=== PATIENT | female | born 1955 | race Caucasian/White ===

== ENCOUNTER 2020-02-26 13:29 | Outpatient (CLI) | payer BC, SELFPAY ==
--- NOTE | ~2020-02-26 | XR_ITS ---
EXAMINATION: XR shoulder LT min 2V DATE: 02/26/2020 13:54 INDICATION: Left shoulder pain. TECHNIQUE: 4 views of left shoulder were obtained. COMPARISON: None. FINDINGS: Bone alignment is normal. No fracture. Glenohumeral joint is normal. There is mild acromioc lavicular joint osteoarthritis. IMPRESSION: 1. Mild left acromioclavicular joint osteoarthritis. Reviewed, dictated and finalized at location B.
== END 2020-02-26 13:30 | disposition home or self-care (01) ==
PROVIDERS: PCP Family Medicine; Visit Provider Family Medicine
DX: M19.012 Primary osteoarthritis, left shoulder (principal)
CPT/HCPCS: 73030

== ENCOUNTER 2020-04-09 14:59 | Emergency (ER) | payer BC, SELFPAY ==
--- NOTE | ~2020-04-09 | CT_ITS ---
EXAMINATION: CT BRAIN W/O DATE: 04/09/2020 16:10 INDICATION: Syncope TECHNIQUE: Computed tomography (CT) of the head was performed without intravenous contrast. The dose- length product was 605.33 mGy-cm. The mA was adjusted according to patient size. Iterative reconstruc tion technique was employed. COMPARISON: No prior studies for comparison. FINDINGS: Normal brain parenchymal volume for age. Normal colvin-white differentiation. No acute intrac ranial hemorrhage, infarction, mass or mass effect. No ventriculomegaly or midline shift. Midline sagittal images demonstrate a normal corpus callosum, c raniovertebral junction and sella turcica. Basilar cisterns are patent. Paranasal sinuses and mastoids are pneumatized. No depressed skull fractures. IMPRESSION: 1. No acute intracranial abnormality. Reviewed, dictated and finalized at location A.
[2020-04-09 15:07] VITALS: BP 154/66; PULSE 70; RESP 17; TEMP 36.1; O2SAT 100
--- NOTE | 2020-04-09 15:11 | ED.GENADULT ---
HPI - General Adult General Chief complaint: Syncope Stated complaint: SYNOPAL EPISODE Source: patient History of Present Illness HPI narrative: Patient is a 64 y/o female complaining of passing out while she was on the commode. She state that she was having an BM, felt dizzy and lowered herself to the floor. She then passed out briefly. She denies any pain or injury. states that their grand kids found her unresponsive and called him. When he got home a few minutes later, she was on the floor and was awake and talking a little bit. Currently, she feels weak all over. Related Data Home Medications Medication Instructions Recorded Confirmed hydrochlorothiazide 12.5 mg tablet 12.5 mg PO DAILY 02/26/20 02/26/20 pantoprazole 40 mg tablet,delayed 40 mg PO QAM 02/26/20 02/26/20 release Allergies Allergy/AdvReac Type Severity Reaction Status Date / Time codeine Allergy Unknown Unknown Verified 04/09/20 15:23 Penicillins Allergy Unknown Unknown Verified 04/09/20 15:23 Review of Systems Constitutional: Constitutional: Denies chills, Denies fever(s), Denies headache(s) and Reports weakness Eyes: Eyes: Denies blurry vision ENT: Denies headache(s) and Denies neck pain Cardiovascular: Cardiovascular: Denies chest pain and Denies dyspnea Respiratory: Respiratory: Denies cough and Denies dyspnea Gastrointestinal: Gastrointestinal: Denies abdominal pain, Denies diarrhea, Denies nausea and Denies vomiting Genitourinary: Genitourinary: Denies hematuria and Denies dysuria Musculoskeletal: Musculoskeletal: Denies back pain and Denies neck pain Neurologic: Reports syncope, Denies headache(s) and Reports weakness PMFSH Past Medical History Medical History Hypertension Hypothyroid Surgical History Surgical History History of cholecystectomy Family History Family History Father Diabetes mellitus Family history of cardiovascular disease Mother Diabetes mellitus Cerebrovascular accident Family history of cardiac disorder Sibling Familial primary pulmonary hypertension Family history of malignant neoplasm Family history of malignant neoplasm of brain Other Family history of kidney disease Hypertension Social History Social History Smoking status: Former smoker Second hand tobacco smoke exposure: No Smoking end date: 07/19/79 Alcohol intake: never Substance use: never Substance use type: does not use Gender identity (if verbalized by the patient): Female Spiritual care concerns: Yes (Patient is ok with speaking with someone.) Agree to blood products: Yes Exam Const: General: no acute distress and well developed Orientation/consciousness: oriented to person, oriented to place, oriented to time and patient oriented x3 HENMT: Head: normocephalic Ears: external ears normal General nose exam: Normal external nose present Eyes: General: appearance normal, both eyes and all related structures Conjunctivae: conjunctivae normal Neck: Neck: normal visual inspection and full ROM Chest: Chest palpation & inspection: normal inspection of the chest and no tenderness Resp: Effort & Inspection: normal respiratory effort Auscultation: clear to auscultation bilaterally Cardio: Rate: regular rate Rhythm: regular rhythm GI: GI Palp: No abdominal tenderness and Yes Soft to palpation Skin: General skin exam: normal color and turgor normal Neuro: General: oriented to person, oriented to place, oriented to time and patient oriented x3 Cranial nerves: Yes CN's II-XII intact bilaterally Cognition (Neuro): normal cognition Speech: normal speech Motor exam (neuro): 5/5 motor strength present throughout Sensory Exam: normal sensation Coordination: [id number] test normal and heel-to
[2020-04-09 15:12] VITALS: BP 145/59; PULSE 70
[2020-04-09 15:13] VITALS: BP 144/66; PULSE 72
[2020-04-09 15:16] VITALS: BP 138/67; PULSE 72; PULSE 98; O2SAT 100
--- NOTE | 2020-04-09 15:20 | ECG_ITS ---
Measurements Intervals [place] Rate: 78 P: 67 MN: 215 QRS: -30 QRSD: 156 T: 107 QT: 405 QTc: 463 Interpretive Statements SINUS RHYTHM WITH FIRST DEGREE AV BLOCK VENTRICULAR PREMATURE COMPLEXES POSSIBLE LEFT ATRIAL ENLARGEMENT LEFT BUNDLE BRANCH BLOCK BASELINE ARTIFACT- I, II, III, AVR, AVL, AVF ABNORMAL ECG Electronically Signed On 04-09-2020 15:22:16 CDT by David Forrest D.O.
[2020-04-09 16:38] LABS: Basophils Percent Auto 0.5 % (0.2-1.2); Eosinophils Percent Auto 0.4 % (0-4.4); Hemoglobin 15.3 g/dL (12.0-15.0); Immature Granulocyte Absolute 0.03 K/mm3 (0.00-0.031); Immature Granulocyte Percent A 0.4 % (0-0.5); Lymphocytes Absolute Auto 1.48 K/mm3 (0.9-3.2); Lymphocytes Percent Auto 17.7 % (18.3-44.2); Mean Corpuscular HGB Conc 33.3 g/dl (32-36); Mean Corpuscular Hemoglobin 31.7 pg (26-34); Mean Corpuscular Volume 95.2 fl (80-100); Mean Platelet Volume 12.1 fl (7.4-10.4); Monocytes Absolute Auto 0.6 K/mm3 (0.1-0.6); Monocytes Percent Auto 7.2 % (2.6-8.5); Neutrophils Absolute Auto 6.2 K/mm3 (1.3-6.7); Neutrophils Percent Auto 73.8 % (45.5-73.1); Platelet Count Result 226 k/mm3 (150-375); Red Blood Count 4.83 M/mm3 (4.2-5.4); Red Cell Distribution Width 12.2 % (11.5-14.5); White Blood Count 8.4 K/mm3 (4.5-10.0)
[2020-04-09 16:50] LABS: Anion Gap 6 mmol/L (8-16); Blood Urea Nitrogen 20 mg/dL (7-17); Calcium 9.4 mg/dL (8.4-10.2); Carbon Dioxide 30 mmol/L (22-30); Chloride 99 mmol/L (98-107); Estimated CRCL calculation 62 ml/min; Estimated Glomerular Filt Rate > 60; Glucose 116 mg/dL (65-105); Potassium 3.9 mmol/L (3.4-5.0); Sodium 135 mmol/L (137-145)
[2020-04-09] MEDS: SODIUM CHLORIDE 0.9% IV 1,000 ML 999 ML IV CONT (16:53)
[2020-04-09 16:55] VITALS: BP 147/57; PULSE 78; RESP 12; O2SAT 100
[2020-04-09 16:58] LABS: Add Urine Microscopic? NO; Appearance Urine Clear (Clear); Bilirubin Urine Negative (Negative); Blood Urine Negative (Negative); Color Urine Yellow (Yellow); Glucose Urine UA Negative (Negative); Ketones Urine Negative (Negative); Leukocyte Esterase Ur Negative LEU/UL (Negative); Nitrate Urine Negative (Negative); Protein Urine Negative (Negative); Specific Grav Ur 1.015 (1.001-1.035); Urobilinogen Urine Negative mg/dL (<2.0)
[2020-04-09 16:59] LABS: NT Pro B Type Natriuretic Pept 79 PG/ML (5-100)
[2020-04-09 17:46] VITALS: BP 146/69; PULSE 76; RESP 16; O2SAT 100
== END 2020-04-09 17:50 | disposition home or self-care (01) ==
PROVIDERS: Emergency Provider Emergency Medicine; PCP Family Medicine
DX: R55 Syncope and collapse (principal); I44.7 Left bundle-branch block, unspecified; I10 Essential (primary) hypertension; E03.9 Hypothyroidism, unspecified
CPT/HCPCS: 36415; 70450; 80048; 81003; 83880; 85025; 93005; 96360; 99284; J7030

== ENCOUNTER 2020-09-05 10:09 | Outpatient (CLI) | payer BC, SELFPAY ==
--- NOTE | ~2020-09-05 | XR_ITS ---
EXAMINATION: XR knee LT min 4V DATE: 09/05/2020 10:29 INDICATION: Left knee pain TECHNIQUE: Four views of the left knee were obtained. COMPARISON: 08/14/2014 FINDINGS: Alignment is normal. No fracture or osteochondral lesion. There is mild tricompartmental os teoarthritis characterized by tiny marginal osteophytes. No joint effusion/synovitis. Soft tissues a re unremarkable. IMPRESSION: 1. Mild osteoarthritis without acute osseous abnormality. Reviewed, dictated and finalized at location A. IC[employer] SUPPORT LEAD
== END 2020-09-05 10:10 | disposition home or self-care (01) ==
LOC: ANHIMG 10:12
PROVIDERS: PCP Physician Assistant; Visit Provider Physician Assistant
DX: M17.12 Unilateral primary osteoarthritis, left knee (principal)
CPT/HCPCS: 73564

== ENCOUNTER 2021-09-22 09:40 | Emergency (ER) | payer BC, SELFPAY ==
--- NOTE | ~2021-09-22 | XR_ITS ---
EXAMINATION: XR chest 2V DATE: 09/22/2021 10:18 INDICATION: Cough. TECHNIQUE: Frontal and lateral views of the chest were obtained. COMPARISON: Chest 2 views 02/18/2017 FINDINGS: The chest demonstrates clear lungs without pneumonia, pleural effusion, or pneumothorax. Th e heart size is normal. Surgical clips in the right upper quadrant are likely from cholecystectomy. IMPRESSION: 1. No acute cardiopulmonary disease. Reviewed, dictated and finalized at location A. 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
--- NOTE | ~2021-09-22 | XR_ITS ---
EXAMINATION: XR thoracic spine 3V DATE: 09/22/2021 10:18 INDICATION: Back pain. TECHNIQUE: 3 views of thoracic spine were obtained. COMPARISON: Chest 2 views 02/18/2017 FINDINGS: There is 9 degrees levocurvature of upper thoracic spine. Vertebral body heights are normal . There is moderately decreased disc height at T4-T5 and T6-T7 and mildly decreased disc height at mu ltiple other levels. There are endplate osteophytes at most levels. Surgical clips in the right upper quadrant are likely from cholecystectomy. IMPRESSION: 1. Moderate thoracic spondylosis. Reviewed, dictated and finalized at location A. 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
[2021-09-22 09:49] VITALS: BP 154/86; PULSE 91; RESP 16; TEMP 36.4; O2SAT 99
--- NOTE | 2021-09-22 10:04 | ED.BACK ---
HPI - Back Pain/Injury General Chief Complaint: Back Pain/Injury Stated Complaint: right flank pain Time Seen by Provider: 09/22/21 09:44 History of Present Illness HPI Narrative: 65-year-old presents to the emergency room gradual onset of right thoracic back pain. Patient states pain is worse when rotating her body to the right or when somebody touches her back. Denies injury or trauma. States pain does not get worse with respiration. Has not tried any [id number] medications for pain relief. Related Data Allergies Allergy/AdvReac Type Severity Reaction Status Date / Time codeine Allergy Unknown Unknown Verified 07/07/21 12:13 Penicillins Allergy Unknown Unknown Verified 07/07/21 12:13 Review of Systems Review of Systems: CONSTITUTIONAL: Denies fever, chills, or sweats. EYES: Denies visual changes, redness, or discharge. ENT: Denies rhinorrhea, congestion, sore throat, or otalgia. CARDIOVASCULAR: Denies chest pain, palpitations, or edema. RESPIRATORY: Denies cough or dyspnea. GASTROINTESTINAL: Denies abdominal pain, nausea, vomiting, or diarrhea. GENITOURINARY: Denies dysuria or hematuria. SKIN: Denies rash or itching. MUSCULOSKELETAL: Reports back pain. NEUROLOGIC: Denies headache, numbness, dizziness, or weakness. PSYCHIATRIC: Denies anxiety or depression. [facility] Past Medical History Medical History Adhesive capsulitis of left shoulder BMI 38.0-38.9,adult Encounter for wellness examination GERD (gastroesophageal reflux disease) Hypertension Hypothyroid Left shoulder pain Primary hypertension Surgical History Surgical History History of delivery (~1979) History of cholecystectomy Family History Family History Father Diabetes mellitus Family history of cardiovascular disease Mother Diabetes mellitus Cerebrovascular accident Family history of cardiac disorder Sibling Familial primary pulmonary hypertension Family history of malignant neoplasm Family history of malignant neoplasm of brain Other Family history of kidney disease Hypertension Social History Social History Second hand tobacco smoke exposure: No Smoking end date: 07/19/79 Alcohol intake: never Substance use: never Substance use type: does not use Gender identity (if verbalized by the patient): Female Sexual Orientation (if Verbalized by the Patient): Straight or Heterosexual Spiritual care concerns: Yes (Patient is ok with speaking with someone.) Agree to blood products: Yes Exam Narrative: GENERAL: Well-appearing, well-nourished, and in no acute distress. HEAD: Normocephalic, atraumatic. EYES: PERRLA and EOMI. ENT: Nares clear, no rhinorrhea or epistaxis. Mucous membranes moist. NECK: Supple. No adenopathy or masses. No carotid bruits or JVD BACK: Tenderness to the right latissimus dorsi muscles, pain with rotation to the right and lateral bend to the right; no midline tenderness. No step-offs. CHEST: Clear to auscultation. No respiratory distress. No wheezes rales or rhonchi HEART: Regular rate and rhythm. No murmur heard. Normal peripheral pulses. ABDOMEN: Soft, nontender, nondistended, normal active bowel sounds. No CVA tenderness EXTREMITIES: Normal range of motion. No edema. SKIN: Warm, dry, no rash. NEURO: No focal deficits. Alert and oriented x3. PSYCH: Normal mood and affect. Course Vital Signs Vital signs: Vital Signs Temperature 36.4 C L 09/22/21 09:49 Pulse Rate 91 09/22/21 09:49 Respiratory Rate 16 09/22/21 09:49 Blood Pressure 154/86 H 09/22/21 09:49 Pulse Oximetry 99 09/22/21 09:49 Temperature 36.4 C L 09/22/21 09:49 Pulse Rate 91 09/22/21 09:49 Respiratory Rate 16 09/22/21 09:49 Blood Pressure 154/86 H 09/22/21 09:49 Pulse Oxim
[2021-09-22] MEDS: KETOROLAC (*BKC) 60 MG/2 ML VIAL IM (10:21)
[2021-09-22 11:09] VITALS: BP 155/74; PULSE 71; RESP 16; O2SAT 99
== END 2021-09-22 11:17 | disposition home or self-care (01) ==
PROVIDERS: Emergency Provider Nurse Practitioner Family; PCP Family Medicine
DX: S29.012A Strain of muscle and tendon of back wall of thorax, initial encounter (principal); I10 Essential (primary) hypertension; E03.9 Hypothyroidism, unspecified; K21.9 Gastro-esophageal reflux disease without esophagitis; Z87.891 Personal history of nicotine dependence; M47.814 Spondylosis without myelopathy or radiculopathy, thoracic region; X58.XXXA Exposure to other specified factors, initial encounter
CPT/HCPCS: 71046; 72072; 96372; 99284; J1885

== ENCOUNTER 2023-09-29 09:09 | Outpatient (CLI) | payer OTHER, SELFPAY ==
[2023-09-29 11:32] LABS: Basophils Percent Auto 0.7 % (0.2-1.2); Eosinophils Absolute Auto 0.1 K/mm3 (0-0.3); Eosinophils Percent Auto 1.7 % (0-4.4); Hematocrit 44.5 % (37.0-47.0); Hemoglobin 14.3 g/dL (12.0-15.0); Immature Granulocyte Absolute 0.01 K/mm3 (0.00-0.031); Immature Granulocyte Percent A 0.2 % (0-0.5); Lymphocytes Absolute Auto 1.74 K/mm3 (0.9-3.2); Lymphocytes Percent Auto 42.2 % (18.3-44.2); Mean Corpuscular HGB Conc 32.1 g/dl (32-36); Mean Corpuscular Hemoglobin 31.2 pg (26-34); Mean Corpuscular Volume 96.9 fl (80-100); Mean Platelet Volume 12.5 fl (7.4-10.4); Monocytes Absolute Auto 0.3 K/mm3 (0.1-0.6); Monocytes Percent Auto 7.3 % (2.6-8.5); Neutrophils Percent Auto 47.9 % (45.5-73.1); Platelet Count Result 225 k/mm3 (150-375); Red Blood Count 4.59 M/mm3 (4.2-5.4); Red Cell Distribution Width 12.9 % (11.5-14.5); White Blood Count 4.1 K/mm3 (4.5-10.0)
[2023-09-29 11:47] LABS: Anion Gap 6 mmol/L (8-16); Blood Urea Nitrogen 16 mg/dL (7-17); Carbon Dioxide 28 mmol/L (22-30); Chloride 106 mmol/L (98-107); Potassium 4.2 mmol/L (3.4-5.0); Sodium 140 mmol/L (137-145)
[2023-09-29 11:48] LABS: Alanine Aminotransferase 20 U/L (6-35); Albumin Level 3.9 g/dL (3.5-5.1); Alkaline Phosphatase 96 U/L (38-126); Aspartate Amino Transferase 45 U/L (14-36); Bilirubin,Total 0.7 mg/dL (0.2-1.3); Cholesterol 175 mg/dL (0-200); Estimated Glomerular Filt Rate > 60; Glucose 105 mg/dL (65-110); HDL Direct 40 mg/dL; Triglycerides 119 mg/dL (<150)
[2023-09-29 11:58] LABS: LDL Cholesterol Direct 108 mg/dL
[2023-09-29 12:26] LABS: Free T4 Free Thyroxine 1.12 ng/mL (0.78-2.19)
[2023-10-04 18:10] LABS: Anti Nuclear Antibody Pattern Nuclear, Speckled; Anti Nuclear Antibody Titer 1:40 (Negative)
== END 2023-09-29 09:10 | disposition home or self-care (01) ==
LOC: ANHGOSHLAB 09:10
PROVIDERS: PCP Family Medicine; Visit Provider Family Medicine
DX: R53.83 Other fatigue (principal); E03.9 Hypothyroidism, unspecified; Z13.228 Encounter for screening for other metabolic disorders; Z13.220 Encounter for screening for lipoid disorders; M25.50 Pain in unspecified joint
CPT/HCPCS: 36415; 80053; 80061; 84439; 84443; 85025; 86038; 86039

== ENCOUNTER 2023-10-13 08:59 | Outpatient (CLI) | payer OTHER, SELFPAY ==
[2023-10-13 19:03] LABS: Rheumatoid Factor < 12.0 IU/ML (<12)
[2023-10-16 21:13] LABS: Anti Cyclic Citrullinated Pept <16 Units (<20)
[2023-10-17 08:09] LABS: SM Antibody <1.0; SM/RNP Antibody <1.0; Scleroderma 70 Antibody <1.0
[2023-10-17 18:50] LABS: HLA B27 Negative (Negative)
[2023-10-19 13:05] LABS: Histone Antibody <1.0 U (<1.0)
== END 2023-10-13 09:00 | disposition home or self-care (01) ==
LOC: ANHGOSHLAB 09:01
PROVIDERS: PCP Family Medicine; Visit Provider Family Medicine
DX: R76.8 Other specified abnormal immunological findings in serum (principal); M25.50 Pain in unspecified joint; H20.9 Unspecified iridocyclitis
CPT/HCPCS: 36415; 86200; 86225; 86235; 86364; 86430; 86812

== ENCOUNTER 2023-11-01 11:44 | Outpatient (CLI) | payer OTHER, SELFPAY ==
[2023-11-01 14:12] LABS: Basophils Absolute Auto 0.1 K/mm3 (0.0-0.1); Basophils Percent Auto 1.3 % (0.2-1.2); Eosinophils Absolute Auto 0.1 K/mm3 (0-0.3); Eosinophils Percent Auto 2.2 % (0-4.4); Hematocrit 44.5 % (37.0-47.0); Hemoglobin 14.4 g/dL (12.0-15.0); Immature Granulocyte Absolute 0.01 K/mm3 (0.00-0.031); Immature Granulocyte Percent A 0.2 % (0-0.5); Lymphocytes Absolute Auto 1.69 K/mm3 (0.9-3.2); Lymphocytes Percent Auto 36.7 % (18.3-44.2); Mean Corpuscular HGB Conc 32.4 g/dl (32-36); Mean Corpuscular Hemoglobin 31.6 pg (26-34); Mean Corpuscular Volume 97.6 fl (80-100); Mean Platelet Volume 12.7 fl (7.4-10.4); Monocytes Absolute Auto 0.4 K/mm3 (0.1-0.6); Monocytes Percent Auto 8.2 % (2.6-8.5); Neutrophils Absolute Auto 2.4 K/mm3 (1.3-6.7); Neutrophils Percent Auto 51.4 % (45.5-73.1); Platelet Count Result 224 k/mm3 (150-375); Red Blood Count 4.56 M/mm3 (4.2-5.4); Red Cell Distribution Width 13.2 % (11.5-14.5); White Blood Count 4.6 K/mm3 (4.5-10.0)
[2023-11-01 15:16] LABS: Erythrocyte Sedimentation Rate 13 mm/hr (0-20)
[2023-11-01 15:24] LABS: Rheumatoid Factor < 12.0 IU/ML (<12)
[2023-11-01 15:37] LABS: Alanine Aminotransferase 19 U/L (6-35); Albumin Level 4.5 g/dL (3.5-5.1); Alkaline Phosphatase 100 U/L (38-126); Anion Gap 8 mmol/L (4-12); Aspartate Amino Transferase 43 U/L (14-36); Bilirubin,Total 0.7 mg/dL (0.2-1.3); Blood Urea Nitrogen 18 mg/dL (7-17); CRP < 0.5 mg/dL (<1.0); Calcium 9.5 mg/dL (8.4-10.2); Carbon Dioxide 26 mmol/L (22-30); Chloride 106 mmol/L (98-107); Estimated Glomerular Filt Rate > 60; Glucose 101 mg/dL (65-110); Potassium 4.2 mmol/L (3.4-5.0); Sodium 140 mmol/L (137-145)
[2023-11-02 11:57] LABS: ANA Cascade Screen NEGATIVE (NEGATIVE)
[2023-11-02 13:16] LABS: Rapid Plasma Reagin Non-Reactive (NonReactive)
[2023-11-02 21:59] LABS: HLA B27 NEGATIVE (NEGATIVE)
[2023-11-03 13:38] LABS: NIL 0.02 IU/mL; Quantiferon TB Plus, 1T NEGATIVE (NEGATIVE); TB1-NIL 0.01 IU/mL; TB2-NIL 0.01 IU/mL
[2023-11-04 23:39] LABS: Treponema pallidum Ab FTA ABS NON-REACTIVE
[2023-11-08 11:58] LABS: Angiotensin Converting Enzyme 37 U/L (9-67)
== END 2023-11-01 11:45 | disposition home or self-care (01) ==
LOC: ANHGOSHLAB 11:47
PROVIDERS: PCP Family Medicine
DX: H20.9 Unspecified iridocyclitis (principal)
CPT/HCPCS: 36415; 80053; 82164; 85025; 85652; 86038; 86039; 86140; 86225; 86235; 86364; 86430; 86480; 86592; 86780; 86812

== ENCOUNTER 2023-11-01 14:22 | Outpatient (CLI) | payer OTHER, SELFPAY ==
--- NOTE | ~2023-11-01 | XR_ITS ---
EXAMINATION: XR chest 2V Exam Date/Time: 11/01/2023 14:40 CDT HISTORY: Uveitis Comparison: 09/22/2021, report only. RESULT: Lines, tubes, and devices: Cholecystectomy clips. Lungs and pleura: Clear. Cardiomediastinal silhouette: Stable. Other: No acute osseous or upper abdominal finding. IMPRESSION: No acute cardiopulmonary process. Reviewed, dictated and finalized at location K.
== END 2023-11-01 14:23 ==
PROVIDERS: PCP Family Medicine
DX: H20.9 Unspecified iridocyclitis (principal)
CPT/HCPCS: 71046

== ENCOUNTER 2024-03-07 15:17 | Outpatient (CLI) | payer OTHER, SELFPAY ==
--- NOTE | ~2024-03-07 | MM_ITS ---
EXAMINATION: MM screening edin BI w fei HISTORY: Screening TECHNIQUE: Craniocaudal and mediolateral oblique 3-D tomosynthesis images were obtained and synthetic 2-D images were generated. CAD analysis was submitted and interpreted. COMPARISON: No prior mammogram is available for comparison at this institution. BREAST PARENCHYMAL COMPOSITION: Not dense: There are scattered areas of fibroglandular density. FINDINGS: There is asymmetry in the upper outer quadrant of the right breast, middle third. The left breast is unremarkable without evidence for malignancy. IMPRESSION: 1. Right breast asymmetry. 2. Additional mammographic views and possible breast ultrasound are recommended. BI-RADS Category 0: Incomplete: Needs additional imaging evaluation. Reviewed, dictated and finalized at location B. IMPRESSION: 1. Right breast asymmetry. 2. Additional mammographic views and possible breast ultrasound are recommended . BI-RADS Category 0: Incomplete: Needs additional imaging evaluation.
== END 2024-03-07 15:18 ==
LOC: MICIMG 15:18
PROVIDERS: PCP Family Medicine; Visit Provider Family Medicine
DX: Z12.31 Encounter for screening mammogram for malignant neoplasm of breast (principal); R92.8 Other abnormal and inconclusive findings on diagnostic imaging of breast
CPT/HCPCS: 77063; 77067

== ENCOUNTER 2024-03-15 08:45 | Outpatient (RCR) | payer OTHER, SELFPAY ==
--- NOTE | 2024-02-07 14:25 | OPREHPOC ---
Outpatient Therapy Plan of Care This is a Multidisciplinary Plan of Care that may contain components documented by all disciplines (PT, OT, and ST.) PT Problem 1 PT Problem #1 Knowledge Deficit PT Goal 1 Goal Pt to be IND with issued HEP Target Visit 6 PT Problem 2 PT Problem #2 Pain PT Goal 1 Goal Pt to report hip pain no greater than 3/10 in the last week. Target Visit 6 PT Goal 2 Goal Pt to report 75% improvement in overall symptoms. Target Visit 6 PT Problem 3 PT Problem #3 Impaired Gait PT Goal 1 Goal Pt to ambulate on level surface without deviations . Target Visit 6 PT Goal 2 Goal Pt to improve 2 min walk distance from 190ft to 250ft. Target Visit 6 PT Problem 4 PT Problem #4 Impaired Strength PT Goal 1 Goal Pt to improve LLE strength equal to RLE. Target Visit 6 PT Goal 2 Goal Pt to be able to lift and carry 15lb from ground level. Target Visit 6
--- NOTE | 2024-02-07 14:25 | PTOPEVAL1 ---
Assessment and note entered by Lucinda Arciniega, PT, DPT Evaluation Information Assessment Status Evaluation Diagnosis L hip pain ICD-10 Condition Codes (PT) Pain in low back M54.50,Pain in left hip M25.552, Difficulty Walking R26.2,R26.9,Weakness R53.1 Onset 5 weeks Subjective Information Pt reports about a 5 week history of L hip pain that has limited her daily activity. She states she has been in bed for the last 3 weeks d/t pain. She reports the pain is in her lateral hip and into the top of her thigh. She states her back started to hurt secondary to limping around. She reports an unlimited baseline mobility. Declines a known SHIRA. Ice relives her pain the most. She states it might be unrelated by she also loss partial vision in her eye at the same time as this started, she states this could be an autoimmune response. Reported Pain Level Pain Score 7: Self Report Assessment PT Clinical Summary Isabell presents to therapy today for evaluation with a diagnosis of L hip and low back pain. Today she demonstrates passive hip ROM that is WNL and mostly symmetrical. She demonstrates asymmetric pelvis alignment, likely contributing to her pain. She demonstrates L hip weakness, significant gait deviations, and postural abnormalities all likely limited by pain. Skilled therapy services are indicated to improve alignment, muscle tension, and to return to PLOF. Plan of Care Interventions Electrical Stimulation,Gait Training,Hot Pack/Cold Pack,Manual Therapy,Neuro Re-education, Therapeutic Activities,Therapeutic Exercise PT Services Indicated Yes Treatment Frequency and 1x/wk for 6 visits Duration These treatments will address the objective and functional deficits as defined above. The patient will be advanced safely and appropriately in order for the patient to progress towards his/her prior level of function. Additional exercises will be introduced and as well as a comprehensive home exercise program upon discharge, if needed, ?to ensure carryover of functional gains achieved in the clinic. This treatment plan has been reviewed and agreement upon by the patient.
--- NOTE | 2024-03-08 10:21 | PCPTNOTE ---
Patient called & cancelled scheduled appointment this date due to scheduling conflicts, she has been rescheduled.
--- NOTE | 2024-03-15 09:29 | PTOPDC ---
Assessment and note entered by Lucinda Arciniega, PT, DPT Evaluation Information Assessment Status Discharge Diagnosis L hip pain ICD-10 Condition Codes (PT) Pain in low back M54.50,Pain in left hip M25.552, Difficulty Walking R26.2,R26.9,Weakness R53.1 Onset 5 weeks Subjective Information Pt states she is doing great. She states she has not had any pain for the last week and a half. She was able to grocery shop without using the cart. She was able to do a couple of hours of cleaning yesterday without an increase in pain today. Reported Pain Level Pain Score 0: Self Report Assessment PT Clinical Summary Pt has completed 5 visits of skilled therapy to address her L hip pain. Today she reports 100% return to PLOF with no pain in almost 2 weeks. She has met all of her therapy goals and no longer requires skilled services she will be discharged at this time to continue her HEP.
== END 2024-03-15 11:07 | disposition home or self-care (01) ==
LOC: ANHGOSHPT 08:45
PROVIDERS: PCP Family Medicine; Visit Provider Family Medicine
DX: M54.50 Low back pain, unspecified (principal); M25.552 Pain in left hip
CPT/HCPCS: 97110; 97140; 97161; 97530

== ENCOUNTER 2024-03-31 07:57 | Outpatient (CLI) | payer OTHER, SELFPAY ==
--- NOTE | ~2024-03-31 | MM_ITS ---
EXAMINATION: MM diagnostic edin RT w fei HISTORY: Right breast asymmetry TECHNIQUE: Additional 3-D tomosynthesis spot compression images of the right breast were performed an d synthetic 2-D images were generated. CAD analysis was submitted and interpreted. COMPARISON: 03/07/2024, 08/18/2012 BREAST PARENCHYMAL COMPOSITION:Not Dense. There are scattered areas of fibroglandular density. FINDINGS: The area of asymmetry effaces with spot compression. No suspicious mass or distortion seen. Calcified fibroadenomas unchanged. No suspicious microcalcifications. IMPRESSION: No mammographic evidence for malignancy. BI-RADS Category 1: Negative Reviewed, dictated and finalized at location .
== END 2024-03-31 07:58 | disposition home or self-care (01) ==
LOC: MICIMG 07:59
PROVIDERS: PCP Obstetrics & Gynecology; Visit Provider Family Medicine
DX: N64.89 Other specified disorders of breast (principal)
CPT/HCPCS: 77061; 77065; G0279